=== PATIENT | female | born 1990 | race Two or more races ===

== ENCOUNTER 2024-11-02 13:49 | Outpatient (CLI) | payer BC ==
[~2024-11-02] VITALS: Ht 175.3 cm; Wt 90.7 kg
== END 2024-11-02 17:00 | disposition home or self-care (01) ==
LOC: Rad HDHVI 13:49
PROVIDERS: ATTEND Internal Medicine Cardiovascular Disease
DX: R00.0 Tachycardia, unspecified (principal); R00.1 Bradycardia, unspecified; R55 Syncope and collapse; Z13.6 Encounter for screening for cardiovascular disorders
CPT/HCPCS: 78452; 93017; A9500; 96374

== ENCOUNTER 2024-11-03 12:56 | Outpatient (CLI) | payer BC | END 2024-11-03 17:00 | disposition home or self-care (01) | LOC: Rad HDHVI 12:56 | PROVIDERS: ATTEND Internal Medicine Cardiovascular Disease | DX: I08.1 Rheumatic disorders of both mitral and tricuspid valves (principal); R42 Dizziness and giddiness | CPT/HCPCS: 93306 ==